=== PATIENT | female | born 1960 | race African-American/Black ===

== ENCOUNTER 2023-06-05 11:01 | Day surgery (SDC) | payer BC ==
[2023-06-02 11:19] LABS: Absolute Basophils 0.1 K/uL (0-0.5); Absolute Eosinophils 0.2 K/uL (0-0.5); Absolute Lymphocytes (CBC) 2.6 K/uL (0.7-4.9); Absolute Monocytes 0.4 K/uL (0.1-1.3); Absolute Neutrophil 3.2 K/uL (1.8-8.0); Basophils % 1.3 % (0-1.3); Eosinophils % 2.4 % (0-4.4); Hematocrit 39.4 % (36.0-45.0); Hemoglobin 12.8 g/dL (12.0-15.0); Lymphocytes % 39.7 % (15.3-44.8); MCH 28.7 pg (27.0-35.0); MCHC 32.4 g/dL (32.0-36.0); MCV 88.6 fL (80-100); MPV 8.3 fL (7.6-11.3); Monocytes % 6.9 % (3.3-12.3); Neutrophils % 49.7 % (41.7-73.7); Platelets 350 thou/uL (152-406); RBC Red Blood Cell Count 4.45 M/uL (3.86-4.86); Red Cell Distribution Width 13.6 % (12.1-15.2)
[2023-06-02 11:28] LABS: Anion Gap 5.7 mEq/L (5.0-15.0); Potassium 3.7 mEq/L (3.5-5.1)
[2023-06-05] MEDS: Ringers Lactate 1,000 ML IV ONE (11:20)
[2023-06-05] MEDS ORDERED: propofoL 200 MG/20 ML VIAL IV ONE ×3 (11:21→12:36)
[2023-06-05] MEDS ORDERED: LIDOCAINE 1% MPF 5 ML VIAL ONE (11:21)
--- NOTE | 2023-06-05 13:05 | EKG ---
Test Date: 2023-06-02 Test Time: 11:03:08 Machine Grinder: MARISELA MEASUREMENT RESULTS: Intervals: Rate: 53 CO: 142 QRSD: 82 QT: 442 QTc: 414 [place]: P: 43 CO: 142 QRS: 7 T: -16 INTERPRETIVE STATEMENTS: Sinus bradycardia Nonspecific ST and T wave abnormality Abnormal ECG No previous ECG available for comparison Electronically Signed On 06-05-23 12:57:44 CDT by Tulio Mcmanus
[2023-06-05 14:29] VITALS: BP 126/56; TEMP 97.4; O2SAT 100
== END 2023-06-05 13:53 | disposition home or self-care (01) ==
LOC: OR 11:01
PROVIDERS: ATTEND Surgery
PROC: 0DBL8ZX Excision of Transverse Colon, Via Natural or Artificial Opening Endoscopic, Diagnostic (ICD-10-PCS; 2023-06-05)
PROC: 0DBK8ZX Excision of Ascending Colon, Via Natural or Artificial Opening Endoscopic, Diagnostic (ICD-10-PCS; 2023-06-05)
PROC: 0DBH8ZX Excision of Cecum, Via Natural or Artificial Opening Endoscopic, Diagnostic (ICD-10-PCS; 2023-06-05)
PROC: 0DBN8ZX Excision of Sigmoid Colon, Via Natural or Artificial Opening Endoscopic, Diagnostic (ICD-10-PCS; principal; 2023-06-05 12:00)
DX: Z12.11 Encounter for screening for malignant neoplasm of colon (principal); D12.0 Benign neoplasm of cecum; I10 Essential (primary) hypertension; E78.00 Pure hypercholesterolemia, unspecified
CPT/HCPCS: 93005; 85025; 80048; 36415; 45385; 45380; J2704 ×2; J2001; J7120; 88305